=== PATIENT | female | born 1975 | race Caucasian/White ===

== ENCOUNTER 2023-11-20 14:07 | Outpatient (AMB) | payer OTHER, SELFPAY ==
--- NOTE | 2023-11-20 14:35 | A.OFFVIS_ITS ---
Vital Signs 11/20/23 14:41 Height 5 ft 3 in Weight 387 lb BMI 68.5 BP 126/76 Blood Pressure Location Rt radial Position Sitting Pulse 103 H Pulse Source Pulse Oximeter Pulse Oximetry (%) 97 Oxygen Delivery Method Room Air Intake Visit Reasons: Obstructive sleep apnea Allergies amoxicillin Allergy (Severe, Verified 11/20/23 14:43) Anaphylaxis HPI HPI Obstructive sleep apnea: Details: Marcus is a very pleasant 48 year old female, never smoker, with underlying severe ABBY, HTN, GERD and morbid obesity. She was referred by PCP for pulmonary evaluation. She reports having sleep study performed October 2022 which revealed severe ABBY, AHI 47 and was motivated to start CPAP therapy. She was referred to another pulmonary provider and apparently order to start CPAP was placed, however patient never received any equipment. She reportedly made multiple attempts to start therapy but was unsuccessful therefore she was referred to this office. She continues to report significant daytime fatigue, falls asleep easily, morning headaches, loud snoring, EPWORTH score 23. She denies any respiratory symptoms at this time. She denies any prior h/o respiratory conditions. [facility] Social History (Updated 11/20/23 @ 14:43 by Rossy Hernández [facility]) Patient Tobacco Use Status: Former Tobacco user Review of Systems Const Denies chills, Denies excessive sweating, Denies fever(s) and Denies night sweats Eyes Denies dry eyes, Denies irritation and Denies itchy eyes ENT Reports Normal hearing present, Denies nasal congestion, Denies nasal discharge, Denies post nasal drip and Denies sore throat Card Denies chest pain, Denies chest pain at rest, Denies chest pain with activity, Denies claudication, Denies leg edema, Denies dyspnea, Denies dyspnea on exertion, Denies orthopnea and Denies paroxysmal nocturnal dyspnea Resp Denies chest congestion, Denies cough, Denies excessive phlegm production, Denies pain on inspiration, Denies pain with cough, Denies dyspnea, Denies dyspnea on exertion, Denies stridor and Denies wheezing Musc Denies myalgias Neuro Reports Normal hearing present Endo Denies excessive sweating Jeffy/Lymph Denies lymphadenopathy Aller/Immun Denies itchy eyes, Denies seasonal rhinorrhea and Denies wheezing Physical Exam Vital Signs: Last Vital Signs Pulse 103 H 11/20/23 14:41 BP 126/76 11/20/23 14:41 Pulse Ox 97 11/20/23 14:41 Oxygen Delivery Method Room Air 11/20/23 14:41 BMI result Body Mass Index 68.5 Const General: cooperative, healthy appearing, comfortable, no acute distress, well developed and alert Nutritional Appearance: obese Orientation/consciousness: patient oriented x3 Limitations: no limitations HEENT Head: Yes normal to inspection, Yes normocephalic and Yes atraumatic Ears: hearing grossly normal bilaterally and external ears normal Eyes General: appearance normal, both eyes and all related structures Eyelids: Yes eyelids normal Sclerae: sclerae normal EOM: EOMs intact bilaterally Neck Neck: Yes normal visual inspection and Yes no lymphadenopathy Lymphatic: no lymphadenopathy noted Chest Chest palpation & inspection: normal inspection of the chest Resp Effort & Inspection: normal respiratory effort, able to speak in complete sentences, no audible wheezes, no cough, no stridor, not tachypneic, no tripod positioning and no use of accessory muscles Auscultation: clear to auscultation bilaterally Cardio Jugular venous distension: no JVD Rate: regular rate Rhythm: regular rhythm Skin Other: warm, dry General skin exam: no rashes or lesions noted Neuro General: patient oriented x3 Cranial nerves: Yes Normal hearing present Cognition (Neuro): normal cognition Gait exam (Neuro): Normal gait present Extrem General: Yes normal to inspection, Yes capillary refill normal, Yes no clubbing, cyanosis or edema and Yes no pedal edema Psych Appearance: grossly normal and well kempt Speech and movement: Normal speech and movement present and Clear speech present Affect: normal affect Attitude: cooperative Thought process: Normal thought process present Thought content: Normal thought content present Insight: Good insight present (Psych) Judgement: Good judgement present (Psych) Assessment & Plan Assessment & Plan (1) Severe obstructive sleep apnea: Code(s): G47.33 - Obstructive sleep apnea (adult) (pediatric) Category: Medical (2) Nocturnal hypoxemia: Code(s): G47.34 - Idiopathic sleep related nonobstructive alveolar hypoventilation Category: Medical (3) Morbid obesity with BMI of 60.0-69.9, adult: Code(s): E66.01 - Morbid (severe) obesity due to excess calories; Z68.44 - Body mass index [BMI] 60.0-69.9, adult Category: Medical Plan Reviewed sleep study results with patient which revealed an AHI of 47, severe obstructive sleep apnea, with an average oxygen saturation of 93%, lowest 65%. Given the severity, an in lab titration study is recommended to ensure optimal pressures. Since patient is quite symptomatic, will start CPAP therapy. Will send in prescription for APAP mode and pressure settings of 6-16 cm with close monitoring for compliance and benefits. Discussed the effects of untreated sleep apnea and importance of compliance with CPAP therapy. Discussed importance of weight loss and reviewed sleep hygiene. All questions were answered and patient is in agreement of plan. Will follow up in 8-10 weeks or sooner if needed. Orders: Orders RT PSG in-lab sleep titration Today E66.01 - Morbid (severe) obesity due to excess calories, G47.33 - Obstructive sleep apnea (adult) (pediatric), G47.34 - Idiopathic sleep related nonobstructive alveolar hypoventilation, Z68.44 - Body mass index [BMI] 60.0-69.9, adult Coding Level of Care Code New Pt Level 3 (25836) Diagnoses Severe obstructive sleep apnea G47.33 Nocturnal hypoxemia G47.34 Morbid obesity with BMI of 60.0-69.9, adult E66.01; Z68.44
[2023-11-20 14:41] VITALS: BP 126/76; PULSE 103; O2SAT 97; BMI 68.5
== END 2023-11-20 15:19 | disposition home or self-care (01) ==
PROVIDERS: PCP Physician Assistant; Visit Provider Nurse Practitioner Family
DX: G47.33 Obstructive sleep apnea (adult) (pediatric) (principal); G47.34 Idiopathic sleep related nonobstructive alveolar hypoventilation; E66.01 Morbid (severe) obesity due to excess calories; Z68.44 Body mass index [BMI] 60.0-69.9, adult
CPT/HCPCS: 99203

== ENCOUNTER → 2023-11-20 14:07 | Outpatient (BNVA) | payer OTHER, SELFPAY | PROVIDERS: PCP Physician Assistant; Visit Provider Nurse Practitioner Family ==

== ENCOUNTER 2024-01-21 10:43 | Outpatient (AMB) | payer OTHER, SELFPAY ==
[2024-01-21 10:47] VITALS: BP 132/64; PULSE 115; O2SAT 95; BMI 70.1
--- NOTE | 2024-01-21 10:47 | A.OFFVIS_ITS ---
Vital Signs 01/21/24 10:47 Height 5 ft 3 in Weight 395 lb 11.676 oz BMI 70.1 BP 132/64 Blood Pressure Location Rt radial Position Sitting Pulse 115 H Pulse Source Pulse Oximeter Pulse Oximetry (%) 95 Oxygen Delivery Method Room Air Intake Visit Reasons: Follow up Allergies amoxicillin Allergy (Severe, Verified 01/21/24 10:50) Anaphylaxis HPI HPI Follow up: Details: Marcus is a very pleasant 48 year old female, never smoker, with underlying severe ABBY, HTN, GERD and morbid obesity. She was referred by PCP for pulmonary evaluation. She reports having sleep study performed October 2022 which revealed severe ABBY, AHI 47 and was motivated to start CPAP therapy. At the last visit, she was started on CPAP therapy and reports significant improvements in daytime fatigue and nonrestorative sleep. Today she presents to review compliance. She denies any respiratory symptoms at this time. [facility] Social History Patient Tobacco Use Status: Former Tobacco user Review of Systems Const Denies chills, Denies excessive sweating, Denies fever(s) and Denies night sweats Eyes Denies dry eyes, Denies irritation and Denies itchy eyes ENT Reports Normal hearing present, Denies nasal congestion, Denies nasal discharge, Denies post nasal drip and Denies sore throat Card Denies chest pain, Denies chest pain at rest, Denies chest pain with activity, Denies claudication, Denies leg edema, Denies dyspnea, Denies dyspnea on exertion, Denies orthopnea and Denies paroxysmal nocturnal dyspnea Resp Denies chest congestion, Denies cough, Denies excessive phlegm production, Denies pain on inspiration, Denies pain with cough, Denies dyspnea, Denies dyspnea on exertion, Denies stridor and Denies wheezing Musc Denies myalgias Neuro Reports Normal hearing present Endo Denies excessive sweating Jeffy/Lymph Denies lymphadenopathy Aller/Immun Denies itchy eyes, Denies seasonal rhinorrhea and Denies wheezing Physical Exam Vital Signs: Last Vital Signs Pulse 115 H 01/21/24 10:47 BP 132/64 01/21/24 10:47 Pulse Ox 95 01/21/24 10:47 Oxygen Delivery Method Room Air 01/21/24 10:47 BMI result Body Mass Index 70.1 Const General: cooperative, healthy appearing, comfortable, no acute distress, well developed and alert Nutritional Appearance: obese Orientation/consciousness: patient oriented x3 Limitations: no limitations HEENT Head: Yes normal to inspection, Yes normocephalic and Yes atraumatic Ears: hearing grossly normal bilaterally and external ears normal Eyes General: appearance normal, both eyes and all related structures Eyelids: Yes eyelids normal Sclerae: sclerae normal EOM: EOMs intact bilaterally Neck Neck: Yes normal visual inspection and Yes no lymphadenopathy Lymphatic: no lymphadenopathy noted Chest Chest palpation & inspection: normal inspection of the chest Resp Effort & Inspection: normal respiratory effort, able to speak in complete sentences, no audible wheezes, no cough, no stridor, not tachypneic, no tripod positioning and no use of accessory muscles Auscultation: clear to auscultation bilaterally Cardio Jugular venous distension: no JVD Rate: regular rate Rhythm: regular rhythm Skin Other: warm, dry General skin exam: no rashes or lesions noted Neuro General: patient oriented x3 Cranial nerves: Yes Normal hearing present Cognition (Neuro): normal cognition Gait exam (Neuro): Normal gait present Extrem General: Yes normal to inspection, Yes capillary refill normal, Yes no clubbing, cyanosis or edema and Yes no pedal edema Psych Appearance: grossly normal and well kempt Speech and movement: Normal speech and movement present and Clear speech present Affect: normal affect Attitude: cooperative Thought process: Normal thought process present Thought content: Normal thought content present Insight: Good insight present (Psych) Judgement: Good judgement present (Psych) Assessment & Plan Assessment & Plan (1) Severe obstructive sleep apnea: Code(s): G47.33 - Obstructive sleep apnea (adult) (pediatric) Category: Medical (2) Nocturnal hypoxemia: Code(s): G47.34 - Idiopathic sleep related nonobstructive alveolar hypoventilation Category: Medical (3) Morbid obesity with BMI of 60.0-69.9, adult: Code(s): E66.01 - Morbid (severe) obesity due to excess calories; Z68.44 - Body mass index [BMI] 60.0-69.9, adult Category: Medical Plan Patient started on CPAP therapy with pressure settings of 6-16 cm for severe obstructive sleep apnea, AHI of 47, with an average oxygen saturation of 93%, lowest 65%. Given the severity, an in lab titration study was ordered however patient declined this. She has been using with 100% compliance and AHI <1, with minimal leaking. She reports significant improvements overall and is motivated to continue to use. Will send for overnight oximetry on CPAP therapy to ensure resolution of nocturnal hypoxemia. All questions were answered and patient is in agreement of plan. Will follow up to review results and see patient in office in 6 months or sooner if needed. Orders: Orders Overnight Pulse Oximetry Today G47.34 - Idiopathic sleep related nonobstructive alveolar hypoventilation Coding Level of Care Code Est Pt Level 4 (23010) Diagnoses Severe obstructive sleep apnea G47.33 Nocturnal hypoxemia G47.34 Morbid obesity with BMI of 60.0-69.9, adult E66.01; Z68.44
== END 2024-01-21 12:12 | disposition home or self-care (01) ==
PROVIDERS: PCP Physician Assistant; Visit Provider Nurse Practitioner Family
DX: G47.33 Obstructive sleep apnea (adult) (pediatric) (principal); G47.34 Idiopathic sleep related nonobstructive alveolar hypoventilation; E66.01 Morbid (severe) obesity due to excess calories; Z68.44 Body mass index [BMI] 60.0-69.9, adult
CPT/HCPCS: 99214

== ENCOUNTER → 2024-01-21 10:43 | Outpatient (BNVA) | payer OTHER, SELFPAY | PROVIDERS: PCP Physician Assistant; Visit Provider Nurse Practitioner Family ==